=== PATIENT | male | born 1970 | race Caucasian/White ===

== ENCOUNTER 2018-12-04 08:30 | Emergency (ER) | payer BC, OTHER ==
[2018-12-04 08:38] VITALS: BP 139/84; PULSE 78; RESP 18; TEMP 98.1
[2018-12-04] MEDS ORDERED: KETOROLAC 60 MG/2 ML VIAL IM STA (09:02)
[2018-12-04] MEDS ORDERED: ORPHENADRINE 30 MG/ML 2 ML VIAL IM STA (09:03)
[2018-12-04] MEDS ORDERED: methylPREDNISolone SOD SUCCI 125 MG/2 ML VIAL IM ONE (09:03)
--- NOTE | 2018-12-04 09:05 | ED ---
Back Pain HPI - General Chief Complaint: Back Pain/Injury Stated Complaint: rt sided low back pain Time Seen by Provider: 12/04/18 08:43 Source: patient, RN notes reviewed, old records reviewed Limitations: no limitations - History of Present Illness Initial Comments: 48-year-old male presents for department today for evaluation complaints of right-sided back pain, worse with movement. He said having the symptoms for the past 6 months. Patient states that he's had no changes in urination or bowel habits or abdominal pain. Denies any anesthesias. Patient reports pain occ asionally radiate down the right leg. Patient states the pain seems like it's progressing. At this time Patient denies any recent saddle anesthesias. He does report pain will occasionally radiate down through the right leg. Patient has had rounds of physical therapy and seen chiropractors with no continued improvement. He denies having any x-rays over his back.Patient denies any recent fever, chills, shortness of breath, chest pain,abdominal pain, nausea vomiting, numbness or tingling, dysuria or hematuria, constipation or diarrhea, headaches or visual changes, or any other current symptoms - Related Data Home Medications Medication Instructions Recorded Confirmed Ibuprofen [Motrin Ib] 200 mg PO BID 12/04/18 12/04/18 Previous Rx's Medication Instructions Recorded Cyclobenzaprine [Flexeril] 10 mg PO TID #15 tab 12/04/18 Dexamethasone 0.75 mg PO DAILY #12 tab 12/04/18 Naproxen [EC-Naproxen] 500 mg PO TID #20 tablet. 12/04/18 Allergies Allergy/AdvReac Type Severity Reaction Status Date / Time No Known Allergies Allergy Verified 12/04/18 08:51 Review of Systems ROS Statement: Those systems with pertinent positive or pertinent negative responses have been documented in the HPI. ROS Other: All systems not noted in ROS Statement are negative. Past Medical History Past Medical History: No Reported History History of Any Multi-Drug Resistant Organisms: None Reported Past Surgical History: No Surgical Hx Reported Past Psychological History: No Psychological Hx Reported Smoking Status: Never smoker Past Alcohol Use History: Occasional Past Drug Use History: None Reported General Exam - General Exam Comments Initial Comments: 48-year-old morbidly obese male. Patient appears in no significant distress. Sitting in chair. Limitations: no limitations General appearance: alert, in no apparent distress Head exam: Present: atraumatic Eye exam: Present: normal appearance, PERRL, EOMI. Absent: scleral icterus, conjunctival injection, periorbital swelling ENT exam: Present: normal exam, mucous membranes moist Neck exam: Present: normal inspection. Absent: tenderness, meningismus, lymphadenopathy Respiratory exam: Present: normal lung sounds bilaterally. Absent: respiratory distress, wheezes, rales, rhonchi, stridor Cardiovascular Exam: Present: regular rate, normal rhythm, normal heart sounds. Absent: systolic murmur, diastolic murmur, rubs, gallop, clicks GI/Abdominal exam: Present: soft, normal bowel sounds. Absent: distended, tenderness, guarding, rebound, rigid Extremities exam: Present: normal inspection, full ROM, normal capillary refill. Absent: tenderness, pedal edema, joint swelling, calf tenderness Back exam: Present: normal inspection, full ROM, tenderness (Lumbar spinal tenderness.) Neurological exam: Present: alert, oriented X3, CN II-XII intact Psychiatric exam: Present: normal affect Skin exam: Present: warm, dry, intact, normal color. Absent: rash Course Vital Signs 12/04/18 08:35 Temperature 98.1 F Pulse Rate 78 Respiratory 18 Rate Blood Pressure 139/84 O2 Sat by Pulse 99 Oximetry Medical Decision Making - Medical Decision Making His is a 48-year-old male presents emergency room today for evaluation complains of low back pain. Patient reports tobacco has been chronic, worse the past 6 months, worse with movement. Denies any abdominal pain or saddle anesthesias. He does report pain will occasionally radiate down the right leg. He takes Motrin with little relief. He states his follow-up chiropractors another spec ialist but has not had any significant improvement of symptoms. Patient at this time has x-ray shows evidence of degenerative cyst as well as scoliosis. Patient has no signs of compression fracture. I discussed the Patient will be discharged at this time with muscle relaxer and anti-inflammatory medication. Discussed strict return parameters and all her referral for orthopedic epic ambulatory specialists. All questions answered. - Radiology Data Radiology results: report reviewed Acute fracture malalignment is seen and lumbar spine. Moderate level disc disease and level scoliosis. Disposition Clinical Impression: DDD (degenerative disc disease), lumbar, Levoscoliosis Disposition: HOME SELF-CARE Condition: Good Instructions (If sedation given, give patient instructions): Chronic Back Pain (DC) Additional Instructions: Patient is to rest, apply heat and ice the back. Recommended following up orthopedic epic ambulatory specialists. Return to emergency department if any alarming signs or symptoms occur. Prescriptions: Dexamethasone 0.75 mg PO DAILY #12 tab Naproxen [EC-Naproxen] 500 mg PO TID #20 tablet. Cyclobenzaprine [Flexeril] 10 mg PO TID #15 tab Is patient prescribed a controlled substance at d/c from ED?: No Referrals: None,Stated [Primary Care Provider] - 1-2 days Rigoberto Benitez DO [Doctor of Osteopathic Medicine] - 1-2 days Time of Disposition: 09:52
--- NOTE | 2018-12-04 09:22 | XR ---
EXAMINATION TYPE: XR lumbar spine 2 or 3V DATE OF EXAM: 12/04/2018 CLINICAL HISTORY: Back pain TECHNIQUE: Frontal and lateral images of the lumbar spine are obtained. COMPARISON: None FINDINGS: There is mild scoliosis of the visualized thoracolumbar spine. Moderate degenerative change s at the lumbosacral junction are seen as facet arthropathy, intervertebral disc space narrowing and small posterior projecting osteophytes. Anterior projecting osteophytes are seen in the remainder the lumbar spine. No vertebral body height loss or malalignment. The overlying soft tissue appears unrem arkable. IMPRESSION: No acute fracture or malalignment is seen in the lumbar spine. Moderate multilevel degen erative disc disease and mild levoscoliosis.
[2018-12-04] MEDS ORDERED: ACET/COD 300 MG/30 MG STARTER PACK 6 TAB BTL PO STA (09:52)
== END 2018-12-04 10:16 | disposition home or self-care (01) ==
LOC: EC 08:30
DX: M51.36 Other intervertebral disc degeneration, lumbar region (principal); M41.86 Other forms of scoliosis, lumbar region; E66.01 Morbid (severe) obesity due to excess calories; Z68.41 Body mass index [BMI] 40.0-44.9, adult; Z79.1 Long term (current) use of non-steroidal anti-inflammatories (NSAID)
CPT/HCPCS: 72100; 99284; 96372 ×3; J2360; J2930; J1885

== ENCOUNTER 2023-02-26 10:58 | Day surgery (SDC) | payer OTHER ==
[2023-02-20 08:57] VITALS: BMI 43.7
[~2023-02-26 10:58] MED LIST: Pre Op ABX Message 1 EACH MISC MISCELLANE ONE
[2023-02-26] MEDS ORDERED: LACTATED RINGERS 1,000 ML IV SCH (11:12)
[2023-02-26 11:39] VITALS: RESP 16; TEMP 97.4
[2023-02-26] MEDS ORDERED: LIDOCAINE 2%-EPI 1:100,000 20 ML VIAL SQ ONE ×2 (12:28→12:45)
[2023-02-26] MEDS ORDERED: BUPIVACAINE (PF) 0.5% 30 ML VIAL SQ ONE ×2 (12:28→12:45)
[2023-02-26] MEDS ORDERED: PROPOFOL 10 MG/ML 20 ML VIAL IV ONE (12:30)
[2023-02-26] MEDS ORDERED: KETAMINE 10 MG/ML 20 ML VIAL ONE (12:30)
[2023-02-26] MEDS ORDERED: HYDROmorphone (PF) 1 MG/ML ONE (12:30)
[2023-02-26] MEDS ORDERED: fentaNYL (PF) 50 MCG/ML 2 ML AMP ONE (12:30)
[2023-02-26] MEDS ORDERED: MIDAZOLAM 2 MG/2 ML VIAL ONE (12:30)
--- NOTE | 2023-02-26 13:35 | P.OP ---
Date of Procedure: 02/26/23 Preoperative Diagnosis: left carpal tunnel syndrome Postoperative Diagnosis: Same Procedure(s) Performed: Left carpal tunnel release Anesthesia: MAC, local Surgeon: Jody Lawson Estimated Blood Loss (ml): 1 Condition: stable Disposition: PACU Indications for Procedure: Yusuf has had long standing numbness and tingling to his left index middle and thumb finger. This is starting to wake him up at night. EMG shows that he is moderate to severe carpal tunnel syndrome. We discussed treatment options and h e would like to proceed with surgical release. Description of Procedure: Patient, operative extremity, and procedure were identified in the preop holding area. After informed consent was obtained the patient was brought back to the operating room or local block was performed with 2% lidocaine with epinephrine and half percent Marcaine. The extremity was then prepped and draped in normal sterile fashion with a tourniquet along the patient's brachium. After formal timeout was performed the tourniquet was inflated. A transverse incision was made just ulnar to the palmaris longus tendon in the proximal wrist crease. Dissection was carried down to the forearm fascia which was transected longitudinally. Forearm fascia was then released proximally about 1 cm. This wound was then utilized to access the carpal tunnel. First with serial dilators and then followed by the cannula. The scope was inserted into the cannula and the transverse carpal ligament was found to be completely isolated from the surrounding soft tissue. There is no apparent nerves noted. The blade was then extubated and in a retrograde fashion the transverse carpal ligament was transected. Visualization to confirm complete release was quite difficult after the transection. The dilator was reinserted and there was a thick band palpated distally that remained. The decision was made to convert to an open carpal tunnel release. A longitudinal incision was made in line with the ring finger proximal to Roberts's cardinal line. Dissection was carried down through the palmar Katlein neuroses and the distal edge of the transverse carpal ligament was identified. There is a thick band here which was transected under tracked visualization. The ulnar neurovascular bundle was visualized and protected throughout this part of the procedure. Wounds were closed with Monocryl, skin glue and Steri-Strips and dressed with Telfa, and a Tegaderm. Patient tolerated the procedure well was brought back to PACU in stable condition
[2023-02-26 13:47] VITALS: BP 117/79; PULSE 66
== END 2023-02-26 14:43 | disposition home or self-care (01) ==
LOC: OR 10:58
PROVIDERS: ATTEND Orthopaedic Surgery Hand Surgery
DX: G56.02 Carpal tunnel syndrome, left upper limb (principal); Z86.59 Personal history of other mental and behavioral disorders; Z79.899 Other long term (current) drug therapy
CPT/HCPCS: 29848; J2250; J3010; J1170; J2704; J0665

== ENCOUNTER → 2023-10-26 | Outpatient (CLI) | payer OTHER ==
--- NOTE | 2023-11-01 09:21 | MR ---
EXAMINATION TYPE: MR lumbar spine wo con DATE OF EXAM: 10/26/2023 COMPARISON: Outside lumbar spine x-ray December 04, 2018 HISTORY: LBP, radiates down right leg. Vertebrogenic low back pain. TECHNIQUE: Multiplanar, multisequence imaging of the lumbar spine is performed without IV contrast. FINDINGS: Sagittal images of the lumbar spine show vertebral body height to appear satisfactory. A fe w scattered Schmorl nodes throughout the lumbar spine are seen . Stable slight grade 1 retrolisthesis L2 on L3 and L3 on L4. Multilevel disc desiccation is redemonstrated with fairly moderate multilevel disc space narrowing. The conus medullaris is normal in position and signal ending at mid L1 level. The bone marrow signal intensity is within normal limits. Axial images at T12-L1 level shows mild to moderate facet arthropathy and ligamentum flavum hypertrop hy bilaterally effacing the posterior lateral thecal sac. No significant disc herniation. Axial images at L1-L2 level shows mild broad-based disc bulge mildly effacing the anterior thecal sac and mild facet arthropathy bilaterally. Patent bilateral neural foramina. Axial images at L2-L3 levels with spondylolisthesis with mild broad-based posterior disc protrusion a nd mild facet arthropathy bilaterally. Mild effacement anterior thecal sac is seen. Axial images at L3-L4 level shows spondylosis with ikxr-bc-fallieck broad disc bulge having right par acentral/foraminal disc protrusion component minimally effacing anterior thecal sac. Patent bilateral neural foramina. Axial images at L4-L5 level show [id number]-yu-yqekxnox facet arthropathy bilaterally. There is tiny centra l disc protrusion. Bilateral neural foramina are patent. Axial images at L5-S1 level mild/moderate facet arthropathy bilaterally. There is focal central disc protrusion. Bilateral neural foramina are patent. Paraspinal muscle bulk is maintained. IMPRESSION: Multilevel spondylolisthesis and degenerative change in the lumbar spine as detailed luis fernando chin
== END | disposition home or self-care (01) ==
LOC: RADMRIMAIN 08:15
PROVIDERS: ATTEND Physical Medicine & Rehabilitation
DX: M43.16 Spondylolisthesis, lumbar region (principal); M47.27 Other spondylosis with radiculopathy, lumbosacral region; M51.27 Other intervertebral disc displacement, lumbosacral region
CPT/HCPCS: 72148

== ENCOUNTER → 2023-11-20 | Outpatient (CLI) | payer OTHER ==
[2023-11-20 08:48] VITALS: BP 135/82; PULSE 80; RESP 16
--- NOTE | 2023-11-20 14:20 | P.PAINPG ---
PQRS Measure Charge Sheet Comment: HISTORY OF PRESENT ILLNESS: A 53 yr old male as a referral from Dr Campa presents today w severe and chronic LBP > 1 yr secondary to DDD, spondylosis and facet arthropathy without myelopathy for evaluation. Pt states pain level is provoked at 8 /10 in intensity, constant, localized in the lower lumbar spine, predominantly axial, burning in character w occasional shooting pain towards the BL thighs and knees. Pain is provoked by walking. Pain is alleviated by swim aerobics x 2.5 mo in 2020, physician guided home stretches nightly since Fall 2020, medications (Ibu, Tyl), manual massage, repositioning and rest . Oswestry axial pain score at 26. PMH: OA PSH: L CTR (2022) SH: Never smoker, Frequent ETOH use, No illicit drug use FH: Non contributory All: See list Meds: See list REVIEW OF ORGAN SYSTEMS: CONSTITUTIONAL: No fevers or chills. No recent weight loss. NEUROLOGICAL: + numbness and tingling along the distal extremities. No seizure disorders or headaches. MUSCULOSKELETAL: + pain PSYCHIATRIC: Denies current depression or suicidal thoughts. Physical Examinations : Constitutional : Cooperative , not in acute distress . Neurologic : Cranial nerve II to XII intact. No focal neurological deficits. Psychiatric : alert & oriented x 3. Matching mood & appropriate affect. Judgment & insight intact. Musculoskeletal : Cervical Spine Motor strength in the deltoid and biceps: Normal right side. Normal Left side Motor strength biceps and the wrist extensors: Normal right side . Normal left side Motor strength in the triceps muscle: Normal right side. Normal left side Deep tendon reflexes: Normal at the biceps. Normal at Brachioradialis. Normal at triceps Vertebral body tenderness to deep palpation over Cervical facet loading test: positive bilaterally Spurling test: positive bilaterally Neck distraction test: positive bilaterally Tiff sign: positive bilaterally Lumbar spine Motor strength lower extremities ,thigh and legs 5/5 Right side , 5/5 Left side Deep tendon reflexes : Normal Knee Jerk. Normal Ankle Jerk Vertebral body tenderness over L5 Amezcua Test positive Lumbar facet Loading Test: positive Right / positive Left Range of motion of the lumbar spine Flexion 30 degrees, extension 10 degrees Straight Leg Raise test: Left< Right positive at < 40 degrees Eliane test: positive right / positive left. Severe tenderness over the Sacroiliac joint on the Right / Left sides Gaenslen test: positive bilaterally Seated flexion test: positive bilaterally. Sacral spine : Severe tenderness over the Sacroiliac joint: right side / left side Range of motion: Flexion of the lumbar spine <60 degrees Range of motion: Extension of the kajal mbar spine <20 degrees Gaenslen's Test positive Eliane test: positive right side / left side Thigh Thrust Test Sacral Thrust Test Imaging: MRI non contrast lumbar spine from 10/26/23 reviewed Assessment/ Plan : Lumbar spondylolisthesis Recommendation of BL TFESI L4-L5 #1. May need a series of injections for optimal pain relief. Risks, benefits of procedure discussed and patient verbalized understanding. Admits to anti- coagulant use or medical history of diabetes. Protocol for discontinuation/ continuation of medications thomas procedure discussed.All questions answered. I have spent greater than 30 minutes on patient care today. Dr Wright was available by phone for the evaluation of this patient. The time was used to review the medical records including relevant urine studies and Prescription history (MAPs), review of the available imaging, evaluation and examination of the patient, coordination of care with the medical staff and if applicable referring physicians, as well as creation of the medical record PQRS Narrative: Smoking Status Never smoker Home Medications: Ambulatory Orders No Known Home Medications 02/20/23 Controlled Substance Measures - Controlled Substance Measures Is patient prescribed a controlled substance at discharge?: No
== END ==
LOC: PNWHC3 08:00
PROVIDERS: ATTEND Specialist
DX: M54.51 Vertebrogenic low back pain (principal); M47.817 Spondylosis without myelopathy or radiculopathy, lumbosacral region; M48.16 Ankylosing hyperostosis [Forestier], lumbar region; M48.062 Spinal stenosis, lumbar region with neurogenic claudication; M43.16 Spondylolisthesis, lumbar region
CPT/HCPCS: 99211

== ENCOUNTER 2023-12-04 11:07 | Day surgery (SDC) | payer OTHER ==
[~2023-12-04 11:07] MED LIST changes: +LACTATED RINGERS 1,000 ML IV SCH; -Pre Op ABX Message 1 EACH MISC MISCELLANE ONE
[2023-12-04 11:33] VITALS: TEMP 97.6
[2023-12-04] MEDS ORDERED: DEXAMETHASONE SOD PHOSPHATE 10 MG/ML 1 ML VIAL ONE (12:27)
[2023-12-04] MEDS ORDERED: IOPAMIDOL M200 10 ML VIAL ONE (12:27)
[2023-12-04 12:52] VITALS: BP 110/76; PULSE 85; RESP 15
--- NOTE | 2023-12-04 12:52 | P.PCN ---
Date of Procedure: 12/04/23 Surgeon: Leticia Sparks Pathology: none sent Condition: stable Disposition: PACU Description of Procedure: Preoperative Diagnosis: lumbar radiculopathy Postoperative Diagnosis: Same as above Procedure(s) Performed: Transforaminal epidural steroid injection for level L4- [id number] under fluoroscopic guidance Anesthesia: local only with lidocaine 1% Surgeon: Leticia Sparks Condition: stable Disposition: PACU Description of Procedure: . The patient was seen and identified in the preoperative area. Risks, benefits, complications, and alternatives were discussed with the patient. The patient agreed to proceed with the procedure and signed the consent. IV was started, and vital signs were stable. Patient was taken to the OR and time out was completed. The patient was placed in the prone position on procedure table and a pillow was placed under the abdomen to reduce lumbar lordosis. The lumbosacral area was prepped and draped in the usual sterile fashion. Critical pause was taken. Vital signs were closely monitored during the procedure. Conscious sedation was used during the procedure to decrease patients anxiety. Lidocaine 1% was used to numb the skin up at the target points that were chosen as follows: For the L4--L5 level the target point was at the 6 o'clock position of L-4 pedicle in the oblique view. The correct view was obtained by squaring off the L4 vertebra on the AP view of fluoroscopy then the C-arm was tilted to the Rt oblique position to an angle at which the superior articular process of the lower vertebra would point to the middle of the pedicle above it at the 6 o'clock position as mentioned above . Then I used 3-1/2 inch 22-gauge Quincke spinal needle to get to the target point mentioned above by touching the inferior edge of the L4 pedicle and then walking off the bone and into the superior part of the L4-5 foramen using the lateral view of fluoroscopy. I then injected 1 mL of Isovue contrast dye which showed typical epidurogram around the L4 nerve root and into the epidural space. Then I injected 1 mL of lidocaine 1% +5 mg of Decadron.the procedure was repeated in the same manner on the opposite side.. Patient tolerated procedure well,and was transferred to PACU in stable condition. A copy of the needle placement picture was saved to the fluoroscopy machine.
--- NOTE | 2023-12-04 13:20 | FL ---
EXAMINATION TYPE: FL guided pain mgmt statistic Intraoperative/procedural fluoroscopic services were provided. Total fluoroscopy time is 29.7 seconds with a total of 6 submitted images to PACS. Please s ee the operative/procedural note for further details. DAP: [id number] [id number]
== END 2023-12-04 13:03 | disposition home or self-care (01) ==
LOC: ORPAIN 11:07
PROVIDERS: ATTEND Anesthesiology
DX: M54.16 Radiculopathy, lumbar region (principal); Z79.1 Long term (current) use of non-steroidal anti-inflammatories (NSAID)
CPT/HCPCS: 64483; J1100; Q9966

== ENCOUNTER 2023-12-11 05:51 | Emergency (ER) | payer OTHER ==
[2023-12-11 05:56] VITALS: BP 146/87; PULSE 84; RESP 18; TEMP 97.6
[2023-12-11] MEDS: FLUORESCEIN STRIPS 1 MG STRIP RIGHT EYE ONE (06:23)
--- NOTE | 2023-12-11 06:33 | ED ---
Eye Problem HPI - General Chief complaint: Eye Problems Stated complaint: Right eye Swelling and loss of vision Time Seen by Provider: 12/11/23 06:11 Source: patient, RN notes reviewed Mode of arrival: ambulatory Limitations: no limitations - History of Present Illness Initial comments: 53-year-old male presents emergency department chief complaint of right eye irritation. Patient states that he noticed some redness around his eye yesterday but states that someone had told him it was there. He states that it is sometimes itchy denies any pain denies any pain with ocular movements he states that he has no visual disturbance only the eyelid is swollen so pushes down some. Patient denies any trauma denies any other rashes denies any sore throat no fevers no chills no other complaints. - Related Data Home Medications Medication Instructions Recorded Confirmed Ibuprofen [Motrin] 800 mg PO DAILY 12/04/23 12/04/23 Previous Rx's Medication Instructions Recorded Amoxic-Pot Clav 875-125Mg 1 tab PO Q12HR #20 tab 12/11/23 [Augmentin 875-125] predniSONE 50 mg PO DAILY #4 tab 12/11/23 Allergies Allergy/AdvReac Type Severity Reaction Status Date / Time No Known Allergies Allergy Verified 12/11/23 05:56 Review of Systems ROS Statement: Those systems with pertinent positive or pertinent negative responses have been documented in the HPI. ROS Other: All systems not noted in ROS Statement are negative. Past Medical History Past Medical History: No Reported History Additional Past Medical History / Comment(s): low back pain History of Any Multi-Drug Resistant Organisms: None Reported Past Surgical History: No Surgical Hx Reported Additional Past Surgical History / Comment(s): carpal tunnel, sinus surgery Past Anesthesia/Blood Transfusion Reactions: No Reported Reaction Past Psychological History: No Psychological Hx Reported Smoking Status: Former smoker Past Alcohol Use History: Occasional Past Drug Use History: None Reported General Exam Limitations: no limitations General appearance: alert, in no apparent distress Head exam: Present: atraumatic, normocephalic, normal inspection Eye exam: Present: normal appearance, PERRL, EOMI, periorbital swelling (Mild right with erythema noted). Absent: scleral icterus, conjunctival injection, periorbital tenderness Pupils: Present: normal accommodation, other (No fluorescein uptake no foreign body noted) ENT exam: Present: normal exam, normal oropharynx, mucous membranes moist Neck exam: Present: normal inspection, full ROM. Absent: tenderness, me ningismus, lymphadenopathy Respiratory exam: Present: normal lung sounds bilaterally. Absent: respiratory distress, wheezes, rales, rhonchi, stridor Cardiovascular Exam: Present: regular rate, normal rhythm, normal heart sounds. Absent: systolic murmur, diastolic murmur, rubs, gallop, clicks Neurological exam: Present: alert, oriented X3 Course Vital Signs 12/11/23 05:52 Temperature 97.6 F Pulse Rate 84 Respiratory 18 Rate Blood Pressure 146/87 O2 Sat by Pulse 99 Oximetry Medical Decision Making - Medical Decision Making Was pt. sent in by a medical professional or institution (, [facility], [facility], urgent care, hospital, or intermediate...) When possible be specific @ -No Did you speak to anyone other than the patient for history (EMS, parent, family, police, friend...)? What history was obtained from this source @ -No Did you review nursing and triage notes (agree or disagree)? Why? @ -I reviewed and agree with nursing and triage notes Were old charts reviewed (outside hosp., previous admission, EMS record, old EKG, old radiological studies, urgent care reports/EKG's, intermediate records)? Report findings @ -No old charts were reviewed Differential Diagnosis (chest pain, altered mental status, abdominal pain women, abdominal pain men, vaginal bleeding, weakness, fever, dyspnea, syncope, headache, dizziness, GI bleed, back pain, seizure, CVA, palpatations, mental health, musculoskeletal)? @ Cellulitis, contact dermatitis, corneal foreign abrasion EKG interpreted by me (3pts min.). @ -None X-rays interpreted by me (1pt min.). @ -None done CT interpreted by me (1pt min.). @ -None done U/S interpreted by me (1pt. min.). @ -None done What testing was considered but not performed or refused? (CT, X-rays, U/S, labs)? Why? @ -None What meds were considered but not given or refused? Why? @ -None Did you discuss the management of the patient with other professionals (professionals i.e. [facility], [facility], lab, RT, psych nurse, marriage and family social worker, software developer, teacher, electrical engineering drafting officer, showcase maker)? Give summary @ -No Was smoking cessation discussed for >3mins.? @ -No Was critical care preformed (if so, how long)? @ -No Were there social determinants of health that impacted care today? How? ([place] elessness, low income, unemployed, alcoholism, drug addiction, transportation, low edu. Level, literacy, decrease access to med. care, prison, rehab)? @ -No Was there de-escalation of care discussed even if they declined (Discuss DNR or withdrawal of care, Hospice)? DNR status @ -No What co-morbidities impacted this encounter? (DM, HTN, Smoking, COPD, CAD, Cancer, CVA, ARF, Chemo, Hep., AIDS, mental health diagnosis, sleep apnea, morbid obesity)? @ -None Was patient admitted / discharged? Hospital course, mention meds given and route, prescriptions, significant lab abnormalities, going to OR and other pertinent info. @ -Discharged patient does have right periorbital swelling without any other acute findings. For this could be related to allergic versus early periorbital patient was given steroids, antibiotics and advised to have recheck in 24 hours. Patient has no ocular pain no visual disturbance Undiagnosed new problem with uncertain prognosis? @ -No Drug Therapy requiring intensive monitoring for toxicity (Heparin, Nitro, Insulin, Cardizem)? @ -No Were any procedures done? @ -No Diagnosis/symptom? @ -Right periorbital swelling Acute, or Chronic, or Acute on Chronic? @ -Acute Uncomplicated (without systemic symptoms) or Complicated (systemic symptoms)? @ -Uncomplicated Side effects of treatment? @ -No Exacerbation, Progression, or Severe Exacerbation? @ -No Poses a threat to life or bodily function? How? (Chest pain, [place], [place], pneumonia, PE, COPD, DKA, ARF, appy, cholecystitis, CVA, Diverticulitis, Homicidal, Suicidal, threat to staff... and all critical care pts) @ -No Disposition Clinical Impression: Periorbital swelling Disposition: HOME SELF-CARE Condition: Stable Instructions (If sedation given, give patient instructions): Periorbital Cellulitis in Adults (ED) Additional Instructions: Please return to the Emergency Department if symptoms worsen or any other concerns. Prescriptions: Amoxic-Pot Clav 875-125Mg [Augmentin 875-125] 1 tab PO Q12HR #20 tab predniSONE 50 mg PO DAILY #4 tab Is patient prescribed a controlled substance at d/c from ED?: No Referrals: Steve Solano MD [Primary Care Provider] - 1-2 days Time of Disposition: 06:33
[2023-12-11] MEDS: AMOXIC-POT CLAV 875-125MG 1 EACH TAB PO STA (06:39)
[2023-12-11] MEDS: dexAMETHasone 2 MG TAB PO STA (06:39)
== END 2023-12-11 06:45 | disposition home or self-care (01) ==
LOC: EC 05:51
DX: H05.221 Edema of right orbit (principal); Z87.891 Personal history of nicotine dependence
CPT/HCPCS: 99283; J8540